=== PATIENT | female | born 1995 | race Two or more races ===

== ENCOUNTER 2022-06-25 16:38 | Emergency (ER) | payer OTHER ==
[~2022-06-25] VITALS: Ht 162.6 cm; Wt 54.9 kg
== END 2022-06-25 19:35 | disposition home or self-care (01) ==
LOC: ER 16:38
DX: O20.9 Hemorrhage in early pregnancy, unspecified (principal); Z3A.01 Less than 8 weeks gestation of pregnancy

== ENCOUNTER 2022-11-26 06:00 | Inpatient (IN) | payer OTHER ==
[~2022-11-26] VITALS: Ht 162.6 cm; Wt 55.3 kg
[2022-11-30] MEDS ORDERED: LUPRON DEPOT3.75 M1 (10:34)
[2022-12-02] MEDS ORDERED: SIMETHICONE80 MG PO (14:12)
[2022-12-02] MEDS ORDERED: COLACE100 MG PO (14:12)
[2022-12-02] MEDS ORDERED: IBU800 MG PO (14:12)
[2022-12-02] MEDS ORDERED: AUGMENTIN XR 11 EACH PO (14:12)
[2022-12-02] MEDS ORDERED: PERCOCET 5-3251 EACH PO (14:12)
== END 2022-12-02 14:47 | disposition home or self-care (01) | DRG 742 ==
LOC: CIR.AMB 06:00 → O/R 10:30 → OB/GYN 10:30 → CIR.AMB 14:00 → OB/GYN 14:20
PROVIDERS: ADMIT Obstetrics & Gynecology; ATTEND Obstetrics & Gynecology
PROC: 0UB90ZZ Excision of Uterus, Open Approach (ICD-10-PCS; principal; 2022-11-26 14:00)
PROC: BW21ZZZ Computerized Tomography (CT Scan) of Abdomen and Pelvis (ICD-10-PCS; 2022-11-29)
PROC: 30233N1 Transfusion of Nonautologous Red Blood Cells into Peripheral Vein, Percutaneous Approach (ICD-10-PCS; 2022-11-29)
DX: D25.9 Leiomyoma of uterus, unspecified (principal); D62 Acute posthemorrhagic anemia; Z20.822 Contact with and (suspected) exposure to COVID-19

== ENCOUNTER 2024-07-14 08:23 | Outpatient (CLI) | payer OTHER ==
[~2024-07-14 08:23] MED LIST: AUGMENTIN XR 11 EACH PO; COLACE100 MG PO; IBU800 MG PO; LUPRON DEPOT3.75 M1; PERCOCET 5-3251 EACH PO; SIMETHICONE80 MG PO
== END 2024-07-14 11:11 | disposition home or self-care (01) ==
LOC: TOM 08:23
PROVIDERS: ATTEND Obstetrics & Gynecology
DX: N14.11 Contrast-induced nephropathy (principal); N94.5 Secondary dysmenorrhea